=== PATIENT | female | born 1975 | race Native Hawaiian/Other Pacific Islander ===

== ENCOUNTER 2022-11-19 15:12 | Outpatient (CLI) | payer BC | END 2022-11-19 23:07 | disposition home or self-care (01) | LOC: RAD 15:12 | PROVIDERS: ATTEND Nurse Practitioner Family | DX: E55.9 Vitamin D deficiency, unspecified (principal); M06.4 Inflammatory polyarthropathy; M25.552 Pain in left hip ==